=== PATIENT | male | born 1940 | race Caucasian/White ===

== ENCOUNTER → 2017-06-25 08:00 | Outpatient (CLI) | payer MEDICARE, SELFPAY ==
[2017-06-25 11:44] LABS: Anion Gap 9 (5-15); BUN 31 mg/dL (7-18); BUN/Creat Ratio 21.4 RATIO (10-20); Calcium,Total 8.4 mg/dL (8.5-10.1); Chloride 104 mmol/L (98-107); Creatinine, Serum 1.45 mg/dL (0.70-1.30); EST Glomerular Filtration Rate 50 mL/min (>60); Est Glom Filt Rate - Afr Amer 61 mL/min (>60); Glucose 110 mg/dL (70-110); Potassium 3.6 mmol/L (3.5-5.1); Sodium Level 141 mmol/L (136-145)
== END ==
PROVIDERS: Family Provider Family Medicine; PCP Family Medicine; Visit Provider Internal Medicine Cardiovascular Disease
DX: I50.21 Acute systolic (congestive) heart failure (principal); I42.9 Cardiomyopathy, unspecified; R06.09 Other forms of dyspnea
CPT/HCPCS: 36415; 80048

== ENCOUNTER → 2017-06-28 08:43 | Outpatient (CLI) | payer MEDICARE, SELFPAY ==
--- NOTE | 2017-06-28 10:34 | US_ITS ---
STUDY: THYROID ULTRASOUND REASON FOR EXAM: Male, 76 years old. ELEVATED LABS TECHNIQUE: Ultrasound evaluation of the thyroid was performed with real-time and static wiggins-scale imaging. COMPARISON: None. FINDINGS: RIGHT LOBE: The right lobe of the thyroid gland measures 5.5X1.4X1.8 cm. There is a homogeneous echotexture. 4 X 4 MM cystic nodule in the right thyroid lobe. The lesion is cystic with regular margins and alli nodular doppler flow. 3.3 x 4.2 x 2.5 mm nodule in the right thyroid lobe. The lesion is solid with regular margins and alli nodular doppler flow. LEFT LOBE: The left lobe of the thyroid gland measures 4.9X1.4X1.9 cm. There is a homogeneous echotexture. 3 x 2.7 x 2 mm nodule. The lesion is solid with regular margins and alli nodular doppler flow. 8.3 x 7.2 x 10 mm nodule. The lesion is solid with regular margins and alli nodular doppler flow. 4.4 x 4.1 x 3.7 mm nodule. The lesion is cystic with regular margins and alli nodular doppler flow. ISTHMUS: The isthmus measures 4 mm. US/Thyroid IMPRESSION: Bilateral thyroid nodules. The [place] Association of [employer] (AACE) in collaboration with the Ass[employer] End[employer] (KEVON) and the Thyroid Association (ETA) published guidelines for the diagnosis and management of thyroid nodules. Biopsy of any solid and hypoechoic nodule larger than 1 cm in diameter. Thyroid nodules of any size undergo biopsy if the patient has been exposed to irradiation, has a family history of medullary carcinoma or multiple endocrine neoplasia, or has previously undergone partial thyroidectomy for thyroid cancer or if an elevated calcitonin level is present. The AACE/KEVON/ETA guidelines recommend biopsy of nodules of any size with marked hypoechogenicity, irregular or microlobulated margins, a taller than wide configuration (anteroposterior dimension greater than transverse dimension), microcalcifications, or chaotic arrangement of intranodular vascular images or chaotic intranodular vascular spots. These guidelines recommend biopsy independent of size if ultrasonography suggests the presence of metastatic lymph nodes or if extracapsular growth is noted in the nodule. They recommend biopsy of the solid component of all complex cystic nodules because of the risk of cystic papillary carcinoma. They further suggest that nodules that are hot on scintigraphy do not require biopsy. -Current Guidelines for the Management of Thyroid Nodules. Juan Carlos Reed MD, VALERIA Dave[employer]. Endocr Pract. 2012; 18(4): 596-599. Electronically Signed: Xu Aponte MD at 16:49 EST , Service support ,
== END ==
PROVIDERS: Family Provider Family Medicine; PCP Family Medicine; Visit Provider Family Medicine
DX: R94.6 Abnormal results of thyroid function studies (principal)
CPT/HCPCS: 76536

== ENCOUNTER → 2017-07-02 10:40 | Day surgery (SDC) | payer MEDICARE, SELFPAY ==
[2017-06-28 09:06] VITALS: BP 114/60; BMI 27.2
[2017-07-02 06:46] VITALS: BMI 27.2
--- NOTE | 2017-07-02 13:53 | PCM.OP.BLANK ---
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 Blackwell, who presents for an elective cardioversion secondary to A. fib/flutter. Patient recently had another cardioversion on 06/08/2017 that was completed by myself. Patient had no recollection of the previous cardioversion. Patient states he has been noticing significantly increasing shortness of breath and water retention after falling out her rhythm. Patient does report that he had some yogurt at approximately 3 AM. Patient has had multiple surgeries previously without complications. Patient is currently anticoagulated with Pradaxa. Patient's last known ejection fraction was 45%. Patient does have a history of smoking for 1 year, but has never been diagnosed with COPD. Patient denies any history of sleep apnea. Physical exam: Vital signs were reviewed and acceptable. Patient is alert and oriented ?4 in no apparent distress. Obese. HEENT exam shows normocephalic atraumatic with mucous membranes moist and pink. Good dentition noted. Good mouth opening noted. Mallampati 2. Good neck mobility. Chest exam is clear to auscultation bilaterally with no wheezes, rales or rhonchi noted. Heart is irregularly irregular without murmurs, rubs or gallops. Abdomen is obese, but soft, nontender and nondistended. Bowel sounds noted. No lower extremity edema is appreciated. No clubbing or cyanosis is appreciated. ASA class II Procedure: After confirmation of informed consent and review of the history, etomidate was chosen as the drug of choice. All questions were answered and patient agreed to proceed. At 1:18 PM the patient was given 4 mg of etomidate. The patient achieved appropriate sedation and a 200 J synchronized cardioversion was delivered by Dr. Blackwell. This was successful in achieving sinus rhythm, but then deteriorated back into atrial fibrillation. A repeat 200 J synchronized cardioversion was successful in sustaining rhythm. No further etomidate was required. The patient was monitored until 1:27 PM, at which time the patient was back to his baseline mental status. Complications: None Estimated blood loss: None Recommendations: Okay to recover in the usual fashion. Code Visit [id number]: Other Procedure See Report - [id number]
--- NOTE | 2017-07-02 15:02 | OP.PCM_ITS ---
Operative Report Date of Procedure: 07/02/17 DC cardioversion. Indication: Atrial flutter symptomatic with shortness of breath. Procedure: The patient was brought to the cardiac catheterization lab in the postabsorptive nonsedated state. He was seen by Dr. Tanner of the critical care division. Patient was noted to have reduced global ejection fraction of 40 % and had been on therapeutic anticoagulation as well as amiodarone. Anterior posterior pads were applied. 200 J of synchronized DC cardioversion energy were applied after the patient was administered 4 mg of intravenous etomidate. The patient reverted to sinus rhythm but then spontaneously went back into atrial fibrillation. Patient was then administered another 200 J of synchronized DC cardioversion energy successfully converted to sinus rhythm. Plan Continue amiodarone Continue anticoagulation.
== END ==
PROVIDERS: Family Provider Family Medicine; PCP Family Medicine; Visit Provider Internal Medicine Cardiovascular Disease
DX: I48.0 Paroxysmal atrial fibrillation (principal); I50.23 Acute on chronic systolic (congestive) heart failure; D68.59 Other primary thrombophilia; I44.7 Left bundle-branch block, unspecified; E78.5 Hyperlipidemia, unspecified; I51.7 Cardiomegaly; Z87.891 Personal history of nicotine dependence; Z86.718 Personal history of other venous thrombosis and embolism; Z79.02 Long term (current) use of antithrombotics/antiplatelets; Z79.899 Other long term (current) drug therapy
CPT/HCPCS: 92960; 93005; J7040

== ENCOUNTER → 2017-07-06 08:20 | Outpatient (CLI) | payer MEDICARE, SELFPAY ==
[2017-07-05 08:29] VITALS: BP 114/60; BMI 27.9
[2017-07-06 10:38] LABS: Anion Gap 10 (5-15); BUN 33 mg/dL (7-18); BUN/Creat Ratio 23.7 RATIO (10-20); Calcium,Total 8.1 mg/dL (8.5-10.1); Chloride 101 mmol/L (98-107); Creatinine, Serum 1.39 mg/dL (0.70-1.30); EST Glomerular Filtration Rate 53 mL/min (>60); Est Glom Filt Rate - Afr Amer 64 mL/min (>60); Glucose 164 mg/dL (74-106); Potassium 3.1 mmol/L (3.5-5.1); Sodium Level 139 mmol/L (136-145); T4 Free Direct 1.84 ng/dL (0.76-1.46)
== END ==
PROVIDERS: Family Provider Family Medicine; PCP Family Medicine; Visit Provider Family Medicine
DX: R94.4 Abnormal results of kidney function studies (principal); R94.6 Abnormal results of thyroid function studies
CPT/HCPCS: 36415; 80048; 84439

== ENCOUNTER → 2017-07-10 08:54 | Outpatient (CLI) | payer MEDICARE, SELFPAY ==
[2017-07-10 11:07] LABS: Anion Gap 9 (5-15); BUN 26 mg/dL (7-18); BUN/Creat Ratio 20.3 RATIO (10-20); Calcium,Total 8.4 mg/dL (8.5-10.1); Chloride 101 mmol/L (98-107); Creatinine, Serum 1.28 mg/dL (0.70-1.30); EST Glomerular Filtration Rate 58 mL/min (>60); Est Glom Filt Rate - Afr Amer 71 mL/min (>60); Glucose 153 mg/dL (74-106); Potassium 3.6 mmol/L (3.5-5.1); Sodium Level 139 mmol/L (136-145)
== END ==
PROVIDERS: Internal Medicine Cardiovascular Disease; Family Provider Family Medicine; PCP Family Medicine; Visit Provider Family Medicine
DX: I50.21 Acute systolic (congestive) heart failure (principal); R60.9 Edema, unspecified
CPT/HCPCS: 36415; 80048

== ENCOUNTER → 2017-07-16 08:22 | Outpatient (CLI) | payer MEDICARE, SELFPAY ==
[2017-07-16 09:17] LABS: Anion Gap 7 (5-15); BUN 25 mg/dL (7-18); BUN/Creat Ratio 17.1 RATIO (10-20); Calcium,Total 8.6 mg/dL (8.5-10.1); Chloride 101 mmol/L (98-107); Creatinine, Serum 1.46 mg/dL (0.70-1.30); EST Glomerular Filtration Rate 50 mL/min (>60); Est Glom Filt Rate - Afr Amer 61 mL/min (>60); Glucose 87 mg/dL (74-106); Sodium Level 140 mmol/L (136-145)
== END ==
PROVIDERS: Family Provider Family Medicine; PCP Family Medicine; Visit Provider Physician Assistant Medical
DX: I50.21 Acute systolic (congestive) heart failure (principal); I48.0 Paroxysmal atrial fibrillation; R06.09 Other forms of dyspnea
CPT/HCPCS: 36415; 80048

== ENCOUNTER → 2017-07-24 08:08 | Outpatient (CLI) | payer MEDICARE, SELFPAY ==
--- NOTE | 2017-07-24 08:10 | RAD_ITS ---
STUDY: X-RAY - ESOPHAGUS (BARIUM SWALLOW) WITH FLUOROSCOPY REASON FOR EXAM: Male, 77 years old. History of dysphasia and gastroesophageal reflux disease. TECHNIQUE: 17 view(s) of the esophagus were obtained following swallowing of barium. FLUOROSCOPY TIME (if supplied): (0:24) minutes/seconds COMPARISON: None. FINDINGS: There is no demonstrated esophageal foreign body. There is evidence of tertiary contractions of the mid and distal esophagus. There is evidence of gastroesophageal reflux. The patient ingested a 12 mm tablet of barium without any difficulty. There is atherosclerotic calcification of the aortic arch with tortuosity of the descending aorta. Normal visualized pulmonary parenchyma. Normal visualized osseous structures of the thorax. IMPRESSION: Gastroesophageal reflux. Tertiary contractions of the mid and distal esophagus. Electronically Signed: Willy Goldberg MD at 9:06 EST Tel [phone], Service support , STUDY: AIR-CONTRAST UPPER GI SERIES. REASON FOR EXAM: Male, 77 years old. Gastroesophageal reflux disease. FLUOROSCOPY TIME (if supplied): (0:30) minutes/seconds TECHNIQUE: The patient ingested barium. Multiple images of the esophagus, stomach and duodenum were obtained. COMPARISON: None. FINDINGS: Tertiary contractions of the mid and distal esophagus. There is evidence of gastroesophageal reflux disease. The stomach is unremarkable. No evidence of ulceration. The duodenum is unremarkable as well. RAD/Upper GI w/BA Swallow IMPRESSION: Gastroesophageal reflux disease. Electronically Signed: Willy Goldberg MD at 9:07 EST Tel [phone], Service support ,
== END ==
PROVIDERS: Family Provider Family Medicine; PCP Family Medicine; Visit Provider Surgery
DX: K21.9 Gastro-esophageal reflux disease without esophagitis (principal); R13.10 Dysphagia, unspecified
CPT/HCPCS: 74246

== ENCOUNTER → 2017-07-31 10:01 | Outpatient (CLI) | payer MEDICARE, SELFPAY ==
[2017-07-31 12:10] LABS: T4 Free Direct 1.38 ng/dL (0.76-1.46)
== END ==
PROVIDERS: Family Provider Family Medicine; PCP Family Medicine; Visit Provider Family Medicine
DX: R94.6 Abnormal results of thyroid function studies (principal)
CPT/HCPCS: 36415; 84439

== ENCOUNTER 2017-08-18 17:50 | Emergency (ER) | payer MEDICARE, SELFPAY ==
[2017-08-18 17:51] VITALS: BP 126/71; PULSE 72; RESP 16; TEMP 36.1; O2SAT 97; BMI 25.9
--- NOTE | 2017-08-18 18:25 | ED.DCSUM_ITS ---
- ER Visit Summary Date of Service: 08/18/17 Chief Complaint: Possible blood clot History of Present Illness: The patient is a 77 M presenting due to concerns for possible blood clot. Patient states that he has a history of protein S deficiency and is on Pradaxa. Patient states that he had a heart ablation performed on Sunday, had a simple IV placed in his right hand, but now states that he is getting ascending redness and pain in his right forearm. Denies any chest pain shortness of breath or palpitations. Patient is back on Pradaxa, and is taking aspirin as well. Denies any constitutional symptoms such as fever. Review of systems otherwise negative. Physical Examination: Physical exam unremarkable except for examination of the right upper extremity. There is evidence of ascending erythema and warmth over the distribution of the venous system on the radial side of the patient's forearm going up into the patient's AC. No evidence of purulent drainage. Minimal tenderness to palpation. Test Results: None indicated Emergency Department Course and Treatment: Patient presented with a physical exam consistent with superficial thrombophlebitis. No evidence of infection at this point. Patient is already on aspirin and Pradaxa. Patient was recommended on continued conservative management with Joey wrap and ice. Patient will follow-up with his primary care physician. Disposition: Discharge Impression: 1. Right arm superficial thrombophlebitis This note was generated with [employer] dictation software. It may contain incorrect words, spelling, and punctuation that were not noted in review of the chart prior to signing ED Disposition - Plan for ED Patient: Disposition: Home or Assisted Living Chief Complaint: Edema Diagnosis: Superficial thrombophlebitis of arm Instructions: ED Phlebitis Superficial Referrals: Darrick Bond MD [Primary Care Provider] - As Needed
== END 2017-08-18 18:50 | disposition home or self-care (01) ==
PROVIDERS: Emergency Provider Emergency Medicine; Family Provider Family Medicine; PCP Family Medicine
DX: I80.8 Phlebitis and thrombophlebitis of other sites (principal); D68.59 Other primary thrombophilia; I48.91 Unspecified atrial fibrillation; I48.92 Unspecified atrial flutter; Z98.890 Other specified postprocedural states; Z86.718 Personal history of other venous thrombosis and embolism; Z79.02 Long term (current) use of antithrombotics/antiplatelets; Z79.82 Long term (current) use of aspirin
CPT/HCPCS: 99282

== ENCOUNTER → 2017-08-30 09:46 | Outpatient (CLI) | payer MEDICARE, SELFPAY ==
[2017-08-30 10:11] LABS: International Normalized Ratio 1.5; Prothrombin Time (Protime)PT. 18.2 SECONDS (11.7-14.9)
[2017-08-30 10:32] LABS: Anion Gap 6 (5-15); BUN 27 mg/dL (7-18); Calcium,Total 9.1 mg/dL (8.5-10.1); Chloride 101 mmol/L (98-107); Creatinine, Serum 1.59 mg/dL (0.70-1.30); EST Glomerular Filtration Rate 45 mL/min (>60); Est Glom Filt Rate - Afr Amer 55 mL/min (>60); Glucose 86 mg/dL (74-106); Potassium 4.6 mmol/L (3.5-5.1); Sodium Level 137 mmol/L (136-145)
== END ==
PROVIDERS: Family Provider Family Medicine; PCP Family Medicine; Visit Provider Nurse Practitioner Family
DX: I48.0 Paroxysmal atrial fibrillation (principal); I44.7 Left bundle-branch block, unspecified; R06.09 Other forms of dyspnea; Z98.890 Other specified postprocedural states
CPT/HCPCS: 36415; 80048; 85610

== ENCOUNTER → 2017-09-10 10:53 | Day surgery (SDC) | payer MEDICARE, SELFPAY ==
[2017-09-07 10:15] VITALS: BMI 25.6
--- NOTE | 2017-09-10 12:29 | PCM.OP.BLANK ---
Operative Report Date of Procedure: 09/10/17 DC cardioversion. 77-year-old man with a history of persistent atrial flutter status post ablation. The patient was brought to the noninvasive lab in the postabsorptive nonsedated state. Patient had been anticoagulated with Pradaxa 150 mg twice a day. After informed consent was obtained the patient was seen by Dr. Tanner of the critical care division. He was administered 4 mg of intravenous etomidate after the AP pads were applied. 200 J of synchronized DC cardioversion energy were applied the patient went briefly into a rapid supraventricular tachyarrhythmia and then converted back to sinus rhythm. EKG confirmed success of the above. Conclusion: Successful DC cardioversion from atrial flutter to sinus rhythm.
--- NOTE | 2017-09-10 14:52 | OP.PCM_ITS ---
Problem List (1) Paroxysmal atrial fibrillation Status: Chronic Comment: S/P DCCV in May 2017, June 2017; ablation with Dr. Beebe at [facility] in July 2017 Operative Report Date of Procedure: 09/10/17 - Conscious sedation CONSCIOUS SEDATION REPORT BRIEF HISTORY OF PRESENT ILLNESS: The patient is an 77-year-old male who presented to [facility] for an elective outpatient cardioversion due to underlying atrial fibrillation by Dr. Blackwell. The patient's last surface echocardiogram revealed ejection fraction of 40%. The patient denies a previous history of anesthetic complications. Patient denies a history of asthma or other lung pathology. Patient denies a history of obstructive sleep apnea. Patient is currently anticoagulated on Pradaxa. Patient denies any history of smoking. PHYSICAL EXAMINATION: VITAL SIGNS: Reviewed and were acceptable. GENERAL: The patient is a male, in no apparent distress, speaking in full sentences. HEENT: Normocephalic, atraumatic. Mucous membranes are moist and pink. Good mouth opening noted. Trachea is midline. Good neck mobility. Mallampati 2 CHEST: S1, S2 irregularly irregular. No murmurs, rubs or gallops were noted. LUNGS: Clear to auscultation bilaterally without appreciable wheezes, rales or rhonchi. ABDOMEN: Soft, nontender, nondistended. Positive bowel sounds. EXTREMITIES: There is no clubbing, cyanosis or edema. ASA Class: II DESCRIPTION OF PROCEDURE: After confirmation of informed consent, the patient's anesthesia plan was reviewed in detail. Etomidate was chosen. Risks and benefits were reviewed and the patient agreed to proceed. At 12:20 PM, the patient was given 4 mg of etomidate. The patient achieved an appropriate level of sedation and was given a 200 joule synchronized cardioversion by Dr. Blackwell at the bedside. This was successful in achieving normal sinus rhythm. The patient was monitored until 12 :26 PM, at which time she reached his baseline mental status and function. The patient tolerated the procedure well. COMPLICATIONS: None ESTIMATED BLOOD LOSS: None RECOMMENDATIONS: Okay to recover in usual fashion. Code Visit 9xxxx: Other Procedure See Report - [id number]
== END ==
PROVIDERS: Family Provider Family Medicine; PCP Family Medicine; Visit Provider Internal Medicine Cardiovascular Disease
DX: I48.0 Paroxysmal atrial fibrillation (principal); I42.0 Dilated cardiomyopathy; I44.7 Left bundle-branch block, unspecified; E78.5 Hyperlipidemia, unspecified; D68.59 Other primary thrombophilia; E04.2 Nontoxic multinodular goiter; I50.22 Chronic systolic (congestive) heart failure; D68.51 Activated protein C resistance; Z86.718 Personal history of other venous thrombosis and embolism; Z79.02 Long term (current) use of antithrombotics/antiplatelets; Z79.899 Other long term (current) drug therapy
CPT/HCPCS: 92960; 93005; J7030

== ENCOUNTER → 2017-09-12 10:00 | Outpatient (CLI) | payer MEDICARE, SELFPAY ==
[2017-09-12 11:19] LABS: Anion Gap 10 (5-15); BUN 44 mg/dL (7-18); Calcium,Total 8.8 mg/dL (8.5-10.1); Chloride 101 mmol/L (98-107); Creatinine, Serum 1.69 mg/dL (0.70-1.30); EST Glomerular Filtration Rate 42 mL/min (>60); Est Glom Filt Rate - Afr Amer 51 mL/min (>60); Glucose 105 mg/dL (74-106); Potassium 4.8 mmol/L (3.5-5.1); Sodium Level 138 mmol/L (136-145)
[2017-09-12 11:25] LABS: BNP,B-Type NATRIURETIC PEPTIDE 977.8 pg/mL (0-100)
== END ==
PROVIDERS: Nurse Practitioner Family; Family Provider Family Medicine; PCP Family Medicine; Visit Provider Internal Medicine Cardiovascular Disease
DX: I48.0 Paroxysmal atrial fibrillation (principal); R60.0 Localized edema; I50.21 Acute systolic (congestive) heart failure
CPT/HCPCS: 36415; 80048; 83880

== ENCOUNTER 2017-10-05 07:33 | Day surgery (SDC) | payer MEDICARE, SELFPAY ==
[2017-10-04 06:35] VITALS: BP 99/70; PULSE 108; RESP 16; TEMP 36.6; O2SAT 98; BMI 25.0
--- NOTE | 2017-10-04 07:31 | SUR.PREOP ---
PT TOOK PRADAXA TODAY, UNABLE TO COMPLETE PROCEDURE. PT WILL BE RESCHEDULED FOR TOMORROW.
[2017-10-05] VITALS (8 sets, daily range): BP systolic 87–120; BP diastolic 53–80; PULSE 70–107; RESP 14–18; TEMP 36.1–36.9; O2SAT 93–99; BMI 25.0
--- NOTE | 2017-10-05 | GASB_PTH ---
PATIENT: BRITTNEY ZHENG LOC: EN U#:[id number] AGE/SX: 77/M ROOM: RE10/05/[address]: Dr. Juan Carlos Mckeon MD : 1940 BED: DIS: 10/05/2017 SPEC #: [id number] RECD: 10/05/17 14:45 STATUS: ALISSON LEIGHA #: [id number] ALYCE: 10/05/17 00:[address]: Juan Carlos Mckoen DEPT: SURGICAL PATHOLOGY RECD BY: Kofi Lyn ENTERED: 10/05/17 14:46 SP TYPE: Gastric Bx OTHR DR: Dr. Darrick Bond MD Tissues: A - Gastric mucous membrane B - Gastric mucous membrane C - Gastric mucous membrane D - Esophageal mucous membrane Procedures: Special Stain Group II Special Stain Group I Surgery Specimen Level IV GMS Stain (control) Alcian Blue/PAS (control) HEADER OPERATION: EGD PRE-OP DIAGNOSIS: GERD TISSUE SUBMITTED: A ? Duodenal biopsy, B ? Antral biopsy for H. pylori and path, C ? Gastric fundic polyp biopsy, D ? Distal esophageal biopsy MICROSCOPIC DIAGNOSIS A. Duodenal biopsy: Fragments of duodenal mucosa with focal flattening of villi. See comment. B. Antral biopsy: Mild gastritis. See microscopic description and comment. C. Gastric fundic polyp, biopsy: Consistent with fundic gland polyp. D. Distal esophagus, biopsy: Fragments of gastroesophageal mucosa with extensive ulceration and associated inflammation. Intestinal metaplasia (goblet cell metaplasia) is not identified. Special stain for fungi is negative for organisms; matched control is appropriate. See comment. SJ:meir 10/08/17 COMMENT A. Increased number of intraepithelial lymphocytes consistent with celiac disease are not seen. Correlation with clinical, endoscopic findings and appropriate follow up are necessary. B. The results of immunohistochemistry for Helicobacter pylori will be reported separately ([id number]). D. Inflammatory infiltrates also contains eosinophils. Alcian blue/PAS stain with matched control is used in the evaluation of the specimen. MICROSCOPIC DESCRIPTION Slides are reviewed. B. The specimen shows fragments of gastric mucosa with chronic inflammatory cell infiltrates in the lamina propria consisting of lymphocytes and plasma cells, consistent with mild chronic gastritis. GROSS DESCRIPTION A - Received in fixative is one container labeled with the patient's name and designated duodenal biopsy. The specimen consists of multiple irregular fragments of light collier soft tissue that in aggregate measure 0.6 x 0.3 x 0.1 cm. The specimen is totally submitted in one cassette. B - Received in fixative is one container labeled with the patient's name and designated antral biopsy. The specimen consists of one irregular fragment of light collier soft tissue that measures 0.5 x 0.2 x 0.1 cm. The specimen is totally submitted in one cassette. C - Received in fixative is one container labeled with the patient's name and designated gastric fundic polyp biopsy. The specimen consists of one irregular fragment of light collier soft tissue that measures 0.2 x 0.2 x 0.1 cm. The specimen is totally submitted in one cassette. D - Received in fixative is one container labeled with the patient's name and designated distal esophagus. The specimen consists of multiple irregular fragments of light collier soft tissue that in aggregate measure 1 x 0.5 x 0.1 cm. The specimen is totally submitted in one cassette. / AM:meir 10/05/17 TC:2 CPT: 89580 x4, 99502, 11794
--- NOTE | 2017-10-05 | IMM_PTH ---
PATIENT: BRITTNEY ZHENG LOC: EN U#:[id number] AGE/SX: 77/M ROOM: RE10/05/[address]: Dr. Juan Carlos Mckeon MD : 1940 BED: DIS: 10/05/2017 SPEC #: [id number] RECD: 10/08/17 11:51 STATUS: ALISSON REUrsula #: [id number] ALYCE: 10/05/17 00:[address]: Juan Carlos Mckeon DEPT: IMMUNOHISTOCHEMISTRY RECD BY: Tamara Acuña ENTERED: 10/08/17 11:52 SP TYPE: IMMUNO OTHR DR: Dr. Darrick Bond MD Tissues: B - Stomach, NOS Procedures: H Pylori (initial) PHYSICIAN & INSTITUTION [place] [address] SPECIMEN INFORMATION: Tissue Source: B ? Antral biopsy Clinical Info: GERD Specimen Number: [id number] CPT code: 02428 METHODOLOGY: Deparaffinized sections of prefer/formalin-fixed tissue or PAP/DQ stained slides are incubated with monoclonal/polyclonal antibodies/oligonucleotide probes. Localization is made via biotin free immunoperoxidase method. Appropriate controls are performed and reacted as expected. Results on target cell population are indicated in the following table: RESULTS: ANTIBODY / CLONE RESULT Block B H Pylori (polyclonal) negative These tests were developed and their performance characteristics determined by [facility]. They may not have been cleared or approved by the U.S. Food and Drug Administration. The FDA has determined that such clearance or approval is not necessary. INTERPRETATION: B. Antral biopsy: Negative for Helicobacter pylori organisms. SJ:meir 10/09/17
[2017-10-05] MEDS: Pantoprazole Sodium 40 MG Tablet PO (09:15)
--- NOTE | 2017-10-05 09:41 | PCM.OPRPT ---
Problem List (1) Dysphagia Status: Acute Qualifiers: Dysphagia type: esophageal phase Qualified Code(s): R13.10 - Dysphagia, unspecified Report of Operation Date of Procedure: 10/05/17 Pre-Operative Diagnosis: Dysphasia, retrosternal chest pain with swallowing Post-Operative Diagnosis: Erosive distal esophagitis, small hiatal hernia, small gastric fundic polyp, diffuse antral gastritis, suspected duodenitis Surgery/Procedure Performed:: Esophagogastroduodenoscopy with cold forcep biopsies Description of Surgical Findings:: Timeout and informed consent was obtained. 77-year-old gent was taken to the endoscopy suite. His oropharynx anesthetized with Topex. He was placed in the left lateral decubitus position. He had monitored anesthesia care. Flexible gastroscope was inserted into the esophageal inlet. The proximal mid esophagus was not remarkable. The distal esophagus demonstrated linear erosions. The EG junction was at 45 cm. Small hiatal hernia noted. The scope was advanced in the stomach a diffuse erythema of the antrum noted. The scope was advanced to the pylorus. The duodenal bulb was unremarkable then then at the curvature towards the second portion the duodenum there appeared to be inflammatory change. No active bleeding. A biopsy was obtained of this area of the duodenum. Hemostasis was intact. The scope was withdrawn back in the stomach and antral biopsy was obtained. The scope was retroflexed the EG junction and cardia was inspected. A small gastric polyp was noted. Cold forceps was used to sample and eradicate that. Small hiatal hernia noted. The scope was placed back in antegrade viewing position. Diffuse erythema of the main body of the stomach and antrum noted. No active bleeding. Excess fluid and air was aspirated free. The distal esophagus was noted now there appear to be linear erosions in the distal one third of the esophagus. Photographs were obtained. Biopsies were obtained of this area. Again hemostasis was intact. Excess fluid and air was aspirated free the procedure was completed with the patient tolerating it well. Impression Erosive distal esophagitis. Biopsies pending. With patient's additional comorbidities will await inspection for possible candidiasis. We will initiate the patient on omeprazole therapy 40 mg daily. Diffuse antral gastritis. Gastric fundic polyp. Probable duodenitis. Anticipate all of this medically treated. The distal erosive esophagitis correlates well with the patient's symptomatic dysphasia complaints. Patient will be notified of pathology results as they become available. Cc: Dr. Darrick Mckeon M.D., F.A.C.S. Type of Anesthesia:: MAC Anesthesiologist: Shant Montoya
== END 2017-10-05 10:50 | disposition home or self-care (01) ==
LOC: EN 07:34 → AC 07:35
PROVIDERS: Family Provider Family Medicine; PCP Family Medicine; Visit Provider Surgery
PROC: 0DJ08ZZ Inspection of Upper Intestinal Tract, Via Natural or Artificial Opening Endoscopic (ICD-10-PCS; CPT 43235; principal; 2017-10-05 08:40)
DX: K29.70 Gastritis, unspecified, without bleeding (principal); K31.7 Polyp of stomach and duodenum; K21.0 Gastro-esophageal reflux disease with esophagitis; K22.10 Ulcer of esophagus without bleeding; K44.9 Diaphragmatic hernia without obstruction or gangrene; E04.2 Nontoxic multinodular goiter; R13.10 Dysphagia, unspecified; I50.23 Acute on chronic systolic (congestive) heart failure; I48.0 Paroxysmal atrial fibrillation; I42.9 Cardiomyopathy, unspecified; E78.5 Hyperlipidemia, unspecified; R60.0 Localized edema; D68.59 Other primary thrombophilia; D68.51 Activated protein C resistance; Z86.718 Personal history of other venous thrombosis and embolism; Z79.02 Long term (current) use of antithrombotics/antiplatelets; Z79.82 Long term (current) use of aspirin; Z79.899 Other long term (current) drug therapy
CPT/HCPCS: 43239; 88305; 88312; 88313; 88342; J7120

== ENCOUNTER → 2017-10-18 07:04 | Outpatient (CLI) | payer MEDICARE, SELFPAY ==
--- NOTE | 2017-10-18 07:08 | NM_ITS ---
CLINICAL: Male, 77 years old. Early satiety. GASTRIC EMPTYING-SULFUR COLLOID TECHNIQUE: The patient was orally administered 1 mCi of Tc-sulfur colloid. Gamma camera imaging acquisitions at 1-60 minutes post radiopharmaceutical administration was performed. COMPARISON STUDIES : NM - None. CR - Upper GI series dated July 24, 2017. CT - Not available for review at this time. MR - Not available for review at this time. US - Not available for review at this time. FINDINGS: There is normal filling and emptying of the stomach. Half-time emptying (T1/2) is 32.34 minutes. NM/Gastric Emptying Study IMPRESSION: Normal gastric emptying nuclear medicine scan. Electronically Signed: Linh Heard MD at 9:17 EDT , Service support ,
[2017-10-18 09:21] LABS: Anion Gap 6 (5-15); BUN 43 mg/dL (7-18); BUN/Creat Ratio 25.7 RATIO (10-20); Calcium,Total 8.6 mg/dL (8.5-10.1); Chloride 102 mmol/L (98-107); Creatinine, Serum 1.67 mg/dL (0.70-1.30); EST Glomerular Filtration Rate 43 mL/min (>60); Est Glom Filt Rate - Afr Amer 52 mL/min (>60); Glucose 147 mg/dL (74-106); Sodium Level 137 mmol/L (136-145)
== END ==
PROVIDERS: Internal Medicine Cardiovascular Disease; Family Provider Family Medicine; PCP Family Medicine; Visit Provider Family Medicine
DX: I48.0 Paroxysmal atrial fibrillation (principal); I42.9 Cardiomyopathy, unspecified; I50.21 Acute systolic (congestive) heart failure; R68.81 Early satiety
CPT/HCPCS: 36415; 78264; 80048; A9541

== ENCOUNTER → 2017-10-19 09:06 | Outpatient (CLI) | payer MEDICARE, SELFPAY ==
--- NOTE | 2017-10-19 09:25 | RAD_ITS ---
STUDY: SWALLOWING STUDY REASON FOR EXAM: Male, 77 years old. Choking episodes. TECHNIQUE: The examination was performed with Speech Pathology in attendance. Under fluoroscopic observation, the patient ingested thin barium, thick barium, barium pudding, and barium coated cracker. FLUOROSCOPY TIME: 0:37 minutes/seconds . 1309 fluoroscopic images. RADIOLOGIST INVOLVEMENT: Radiologist was present and providing direct supervision. COMPARISON: None. FINDINGS: The following was observed during swallowing of the various mixtures of barium: Thin Barium: There was no evidence of aspiration or laryngeal penetration. Barium Pudding: There was no evidence of aspiration or laryngeal penetration. Barium Coated Cracker: There was no evidence of aspiration or laryngeal penetration. RAD/Swallowing Function w/Video IMPRESSION: Normal tailored barium swallow study. No evidence of increased risk for aspiration. The swallow study findings were discussed with the patient by the speech pathologist at the conclusion of the examination. Please see speech pathology report for more information and recommendations. Electronically Signed: Willy Goldberg MD at 10:22 EDT Tel [phone], Service support ,
--- NOTE | 2017-10-19 09:30 | SP.MBSS_ITS ---
PRIMARY / SECONDARY DIAGNOSIS: dysphagia (R13.10) REFERRING PHYSICIAN: Dr. Darrick Bond MD CURRENT DIET: regular textures, thin liquids DENTITION: WFL MENTAL STATUS: WNL RESPIRATORY STATUS: O2 via room air PREVIOUS MODIFIED BARIUM SWALLOW STUDY: none 07/24/2017 esophagram / upper GI series revealed gastroesophageal reflux; tertiary contractions of the mid and distal esophagus. REASON FOR REFERRAL: Patient is a 77 year old male referred for a modified barium swallow (MBS) study to objectively assess the Patients oropharyngeal swallow function under fluoroscopy secondary to reported globus sensation, reporting intermittent coughing / throat clearing post deglutition. MEDICAL HISTORY: Gastroesophageal reflux disease, chest pain upon exertion, multiple thyroid nodules, acute systolic congestive heart failure, dyspnea on exertion, proximal atrial fibrillation, left ventricular hypertrophy, hyperlipidemia, left bundle branch block, edema extremities, protein deficiency, thromboembolism. STUDY FINDINGS: Patient participated in a Modified Barium Swallow (MBS) study on 10/19/2017. Dr. Goldberg was the radiologist present for this evaluation. This study was recorded in the lateral view and images were sent to PACs for storage. The following consistencies were presented to this patient for analysis of oropharyngeal swallow function: thin liquids, pudding, and a regular textured, Donna Doone cookie. Results of the MBS are as follows: PENETRATION / ASPIRATION SCALE (CONNELLY): 1 = does not enter airway 2 = enters airway/above vocal folds/ejected 3 = enters airway/above vocal folds/not ejected 4 = enters airway/contacts vocal folds/ejected 5 = enters airway/contacts vocal folds/not ejected 6 = enters airway/below vocal folds/ejected 7 = enters airway/below vocal folds/not ejected despite effort 8 = enters airway/below vocal folds/no effort PENETRATION / ASPIRATION SCALE (SCORE) WITH VIDEOFLOROSCOPIC SCALE SCORE: Thin liquid - 5 mL tsp.: 1 Thin liquids via cup (single sip): 1, 4* Thin liquids via cup (single sip): 1 Thin liquids via cup (single sip): 1 Thin liquids via cup (sequential swallows): 1 Pudding via spoon: 1 Regular textured cookie: 1 Thin liquids via straw (sequential swallows): 1 * denotes post prandial penetration and immediate ejection IMPRESSION: DIAGNOSIS: oropharyngeal swallow within functional limits, likely esophageal phase impairments. ORAL PHASE CHARACTERIZED BY: LABIAL SEAL: no labial escape TONGUE CONTROL DURING BOLUS MANIPULATION: occasional escape to lateral buccal cavity/floor of mouth, not clinically significant BOLUS PREPARATION / MASTICATION: timely and efficient chewing and mashing BOLUS TRANSPORT / LINGUAL MOTION: brisk tongue motion ORAL RESIDUE: trace residue lining oral structures PHARYNGEAL PHASE CHARACTERIZED BY: INITIATION OF PHARYNGEAL SWALLOW: bolus head at posterior angle of ramus at first hyoid excursion SOFT PALATE ELEVATION: no bolus between soft palate and pharyngeal wall LARYNGEAL ELEVATION: complete superior movement of thyroid cartilage with complete approximation of arytenoids cartilage to epiglottic petiole ANTERIOR HYOID EXCURSION: complete anterior movement EPIGLOTTIC MOVEMENT: complete epiglottic inversion LARYNGEAL VESTIBULE CLOSURE AT HEIGHT OF SWALLOW: complete laryngeal vestibule closure with no air/contrast in laryngeal vestibule PHARYNGEAL STRIPPING WAVE: pharyngeal stripping wave present / complete PHARYNGOESOPHAGEAL SEGMENT OPENING: complete distension and complete duration with no obstruction of flow TONGUE BASE RETRACTION: no contrast between tongue base and posterior pharyngeal wall PHARYNGEAL RESIDUE: trace residue within or on pharyngeal structures ESOPHAGEAL PHASE CHARACTERIZED BY: ESOPHAGEAL BOLUS CLEARANCE IN THE UPRIGHT POSITION: esophageal retention with minimal retrograde flow through PES DIET TEXTURE RECOMMENDATIONS: Will recommend a regular textured, thin liquid diet. COMPENSATORY STRATEGIES RECOMMENDED: Seated upright at 90 degrees during PO intake INTERPRETATION OF RESULTS: Patient presents with oropharyngeal swallow within functional limits, likely esophageal phase impairments. Oropharyngeal phase unremarkable. Esophageal phase marked by esophageal retention / slowed esophageal clearance without significant retrograde flow, with minimal retrograde flow through the pharyngoesophageal segment opening from minimal retention located within the pharyngoesophageal segment only, clinically insignificant in regards to diet texture tolerance. Penetration to the vocal folds associated with spillage from minimal residue post deglutition immediately sensed and ejected with a volitional reswallow, not outside normal limitations. Would attribute globus sensation with previously identified gastroesophageal reflux and / or esophageal dysmotility (if verified through more sensitive instrumental measures ). No aspiration appreciated throughout trials, unable to definitively rule out silent aspiration, though not suspected. RECOMMENDATIONS: Patient able to comprehend and express recommended intake precautions detailed above with sufficient detail to suggest high likelihood of compliance. Provided brief overview of signs and symptoms of aspiration, with recommendations for the Patient to further discuss symptoms with PCP. No further skilled speech- language services warranted at this time targeting dysphagia. ADDITIONAL COMMENTS/RECOMMENDATIONS: Results and recommendations were discussed with the Patient immediately following MBS completion, with the Patient verbalizing understanding and agreement with all recommendations and education provided. IMAGE COUNT: [id number] G-CODES: SWALLOWING [id number] Current Status: SWALLOWING [id number] Goal Status: SWALLOWING G8998 Discharge Status:
== END ==
PROVIDERS: Family Provider Family Medicine; PCP Family Medicine; Visit Provider Family Medicine
DX: R68.81 Early satiety (principal); T17.308A Unspecified foreign body in larynx causing other injury, initial encounter
CPT/HCPCS: 74230; 92611; G8996; G8997; G8998

== ENCOUNTER → 2017-10-25 15:28 | Outpatient (CLI) | payer MEDICARE, SELFPAY ==
[2017-10-25 16:27] LABS: Anion Gap 10 (5-15); BUN 43 mg/dL (7-18); BUN/Creat Ratio 26.2 RATIO (10-20); Calcium,Total 8.6 mg/dL (8.5-10.1); Chloride 99 mmol/L (98-107); Creatinine, Serum 1.64 mg/dL (0.70-1.30); EST Glomerular Filtration Rate 44 mL/min (>60); Est Glom Filt Rate - Afr Amer 53 mL/min (>60); Glucose 105 mg/dL (74-106); Potassium 3.9 mmol/L (3.5-5.1); Sodium Level 139 mmol/L (136-145)
== END ==
PROVIDERS: Family Provider Family Medicine; PCP Family Medicine; Visit Provider Physician Assistant Medical
DX: I42.9 Cardiomyopathy, unspecified (principal)
CPT/HCPCS: 36415; 80048

== ENCOUNTER → 2017-10-31 12:47 | Outpatient (CLI) | payer MEDICARE, SELFPAY ==
--- NOTE | 2017-10-31 12:47 | DT_ITS ---
This patient was seen during an EMR downtime October 29, 2017 - November 05, 2017. This patient may have a combination of paper and electronic documentation or all paper documentation. All documentation is viewable within the e-chart portion of [facility] for each patient visit.
[2017-11-05 12:36] LABS: Anion Gap 10 (5-15); BUN 50 mg/dL (7-18); BUN/Creat Ratio 24.4 RATIO (10-20); Calcium,Total 8.4 mg/dL (8.5-10.1); Chloride 99 mmol/L (98-107); Creatinine, Serum 2.05 mg/dL (0.70-1.30); EST Glomerular Filtration Rate 34 mL/min (>60); Est Glom Filt Rate - Afr Amer 41 mL/min (>60); Glucose 96 mg/dL (74-106); Potassium 3.9 mmol/L (3.5-5.1); Sodium Level 137 mmol/L (136-145)
== END ==
PROVIDERS: Family Provider Family Medicine; PCP Family Medicine; Visit Provider Internal Medicine Cardiovascular Disease
DX: I50.9 Heart failure, unspecified (principal)
CPT/HCPCS: 36415; 80048

== ENCOUNTER → 2017-11-02 09:49 | Day surgery (SDC) | payer MEDICARE, SELFPAY ==
--- NOTE | 2017-11-02 09:49 | DT_ITS ---
This patient was seen during an EMR downtime October 29, 2017 - November 05, 2017. This patient may have a combination of paper and electronic documentation or all paper documentation. All documentation is viewable within the e-chart portion of [facility] for each patient visit.
== END ==
PROVIDERS: Family Provider Family Medicine; PCP Family Medicine; Visit Provider Internal Medicine Cardiovascular Disease
DX: I48.0 Paroxysmal atrial fibrillation (principal); I50.21 Acute systolic (congestive) heart failure; I42.0 Dilated cardiomyopathy; I44.7 Left bundle-branch block, unspecified; D68.59 Other primary thrombophilia; D68.51 Activated protein C resistance; E78.5 Hyperlipidemia, unspecified; K21.9 Gastro-esophageal reflux disease without esophagitis; Z79.02 Long term (current) use of antithrombotics/antiplatelets; Z79.899 Other long term (current) drug therapy; Z86.718 Personal history of other venous thrombosis and embolism; Z86.2 Personal history of diseases of the blood and blood-forming organs and certain disorders involving the immune mechanism
CPT/HCPCS: 92960; 93005; J7040

== ENCOUNTER → 2017-11-19 10:53 | Outpatient (CLI) | payer MEDICARE, SELFPAY ==
--- NOTE | 2017-11-19 10:58 | ECHOD_ITS ---
Reason For Study: DYSPNEA/SOB Procedure This was a 2D Doppler, Color Flow transthoracic echocardiogram. Exam performed in department. Left Ventricle Moderately dilated left ventricle. The estimated ejection fraction is 25 %. Transmitral diastolic flow velocities suggest severe (stage 3) diastolic dysfunction. Transmitral and pulmonary venous doppler flow suggestive of elevated left atrial pressure. There is moderate to severe global hypokinesis of the left ventricle. Right Ventricle Moderately dilated right ventricle. Mild to moderate global right ventricular systolic dysfunction. Atria The left atrium is moderately enlarged. The right atrium is moderately enlarged. Aneurysmal atrial septum. Mitral Valve Normal mitral valve. Mild (1+) eccentric mitral valve insufficiency. Tricuspid Valve Normal tricuspid valve. Mild (1+) tricuspid valve insufficiency. Pulmonary artery systolic pressure is 50 mmHg. Moderate pulmonary hypertension. Aortic Valve Trisinus/trileaflet aortic valve. Pulmonic Valve Normal pulmonic valve. Mild (1+) pulmonic valve insufficiency. Great Vessels Normal aortic root. The pulmonary artery is normal size. Inferior vena cava collapse with sniff. and partially collapses. Pericardium/Pleural No pericardial effusion. MMode/2D Measurements & Calculations LVIDd: 6.2 cm IVSd: 1.1 cm Ao root diam: 3.2 cm LVIDs: 5.5 cm LVPWd: 1.1 cm LA dimension: 4.5 cm RVDd: 3.9 cm FS: 12.1 % LAV(MOD-bp): 103.9 ml LVAd ap4: 46.4 cm2 SV(MOD-sp4): 36.8 ml LAV(MOD-bp) Indexed: 51.8 ml/m2 EDV(MOD-sp4): 180.2 ml LAV(MOD-sp2): 118.4 ml EDV(sp4-el): 188.7 ml LAV(MOD-sp4): 91.5 ml LVAs ap4: 40.1 cm2 ESV(MOD-sp4): 143.4 ml ESV(sp4-el): 152.1 ml EF(MOD-sp4): 20.4 % EF(sp4-el): 19.4 % SV(sp4-el): 36.7 ml LA A4 area: 27.5 cm2 RA A4 area: 29.9 cm2 Doppler Measurements & Calculations MV E max ant: 69.1 cm/sec Lat Peak E' Ant: 4.8 cm/sec Med Peak E' Ant: 4.9 cm/sec MV A max ant: 35.4 cm/sec E/E' lat: 14.2 E/E' med: 14.1 MV E/A: 2.0 Ao V2 max: 87.4 cm/sec LV V1 max: 55.5 cm/sec PA V2 max: 70.1 cm/sec Ao max P.1 mmHg LV V1 max P.2 mmHg PI end-d ant: 102.2 cm/sec TR max ant: 333.6 cm/sec TR max P.8 mmHg Interpretation Summary Moderately dilated left ventricle. The estimated ejection fraction is 25 %. Transmitral diastolic flow velocities suggest severe (stage 3) diastolic dysfunction Mild (1+) eccentric mitral valve insufficiency. Pulmonary artery systolic pressure is 50 mmHg. Moderate pulmonary hypertension. Biatrial enlargement Ordering Physician: Axel Blackwell Referring Physician: JALEEL MOREAU Performed By: Daiana Sanchez RDCS
[2017-11-19 13:11] LABS: Anion Gap 6 (5-15); BUN 26 mg/dL (7-18); BUN/Creat Ratio 21.1 RATIO (10-20); Calcium,Total 8.8 mg/dL (8.5-10.1); Chloride 105 mmol/L (98-107); Creatinine, Serum 1.23 mg/dL (0.70-1.30); EST Glomerular Filtration Rate 61 mL/min (>60); Est Glom Filt Rate - Afr Amer 74 mL/min (>60); Glucose 90 mg/dL (74-106); Potassium 4.8 mmol/L (3.5-5.1); Sodium Level 138 mmol/L (136-145)
== END ==
PROVIDERS: Physician Assistant Medical; Family Provider Family Medicine; PCP Family Medicine; Visit Provider Internal Medicine Cardiovascular Disease
DX: R06.09 Other forms of dyspnea (principal); I42.9 Cardiomyopathy, unspecified; I50.21 Acute systolic (congestive) heart failure
CPT/HCPCS: 36415; 80048; 93306